=== PATIENT | female | born 1945 | race Caucasian/White ===

== ENCOUNTER 2021-03-02 21:34 | Inpatient (IN) | payer MEDICARE, OTHER ==
[~2021-03-02] VITALS: Ht 160 cm; Wt 98.4 kg
[2021-03-03] VITALS (7 sets, daily range): BP systolic 93–143; BP diastolic 55–76
[2021-03-03] MEDS ORDERED: ONDN4T PO (01:53)
[2021-03-03] MEDS ORDERED: ERGO1250 PO (02:08)
[2021-03-03] MEDS ORDERED: CETI10CA PO (02:08)
[2021-03-03] MEDS ORDERED: FLUT9.9S NS (02:08)
[2021-03-03] MEDS ORDERED: DICL20GE TP (02:08)
[2021-03-03] MEDS ORDERED: CNC1KV IM (02:08)
[2021-03-03] MEDS ORDERED: TROL85CR3 TP (02:09)
[2021-03-03] MEDS ORDERED: IBUP-2185 PO (02:09)
[2021-03-03] MEDS ORDERED: SIME125C78 PO (02:09)
[2021-03-03] MEDS ORDERED: MULT-985 PO (02:09)
[2021-03-03] MEDS ORDERED: METH114C4 TP (02:09)
[2021-03-03] MEDS ORDERED: MECL-149 PO (02:09)
[2021-03-03] MEDS ORDERED: LOPE2TAB34 PO (02:09)
[2021-03-03] MEDS ORDERED: DEXT1DRO7 OU (02:09)
[2021-03-03] MEDS ORDERED: HYDROmorphone 2 MG/ML VIAL (DILAUDID) IVP PRN (02:15)
[2021-03-03] MEDS: LACTATED RINGERS 1,000 ML IV SCH ×3 (02:44→17:20)
[2021-03-03 06:15] LABS: BASOPHILS % (AUTO) 0 % (0-10); EOSINOPHILS # (AUTO) 0.1 10^3/uL (0.0-0.3); EOSINOPHILS % (AUTO) 1 % (0-10); HEMATOCRIT 36 % (35-52); HEMOGLOBIN 11.4 g/dL (11.5-16.0); LYMPHOCYTES # (AUTO) 1.5 10^3/uL (1.0-4.0); LYMPHOCYTES % (AUTO) 21 % (12-44); MEAN CORPUSCULAR HEMOGLOBIN 30 pg (25-34); MEAN CORPUSCULAR HGB CONC 32 g/dL (32-36); MEAN CORPUSCULAR VOLUME 93 fL (80-99); MEAN PLATELET VOLUME 9.5 fL (9.0-12.2); MONOCYTES # (AUTO) 0.7 10^3/uL (0.0-1.0); MONOCYTES % (AUTO) 10 % (0-12); NEUTROPHILS # (AUTO) 4.8 10^3/uL (1.8-7.8); NEUTROPHILS % (AUTO) 67 % (42-75); PLATELET COUNT 335 10^3/uL (130-400); WHITE BLOOD COUNT 7.2 10^3/uL (4.3-11.0)
[2021-03-03 06:39] LABS: POTASSIUM 3.5 MMOL/L (3.6-5.0)
[2021-03-03 06:40] LABS: CALCIUM 8.8 MG/DL (8.5-10.1)
[2021-03-03 06:45] LABS: CREATININE SERUM 0.64 MG/DL (0.60-1.30)
--- NOTE | 2021-03-03 07:25 | Consultation - Surgery ---
MATT COREAS 03/03/21 0725: History of Present Illness History of Present Illness Patient Consulted On(roya/time) 03/03/21 07:18 Date Seen by Provider: Mar 03, 2021 Time Seen by Provider: 08:25 History of Present Illness PT is a 75 yo female here for small bowel obstruction. The patient reports symptoms belching, gas, bloating and diarrhea that started on evening. She denies seeing blood her in diarrhea, and reports it was a mix of watery substance and stool. She reports her abdominal pain is 1/10 currently, and was up to a 5.5/10. She describes her pain as "sore all over" and dull in character. She reports having 1/2 a cup of water, 1/2 a cup of apple juice, and some crackers Friday evening. She reports 1x episode of vomiting last night. Her last regular bowel movement was on morning. She mentions hearing some sloshing noises on the left side of the abdomen. She has been passing flatus regularly since these symptoms started. She came from the hospital in [place], and reports having a CT scan done there which showed a SBO she reports. The patient reports a history of 7 previous bowel obstructions. She reports they have been managed with NG tube placement and NPO. She has not had surgical therapy for the obstructions. Her last small bowel obstruction was in September, and was managed under the direction of Dr. Mccain in [facility]. She had a colonoscopy at that time, which she reports found polyps, and diverticulosis. Her next colonoscopy is scheduled in 5 years. The patient has a history of an appendectomy ( at 18 yo) , hysterectomy ( in 1971), and cholecystectomy ( 10 years ago) Allergies and Home Medications Allergies Coded Allergies: diazepam (Verified Allergy, Intermediate, 03/03/21) VIOLENT BEHAVIOR Penicillins (Verified Allergy, Mild, Hives, 03/03/21) codeine (Verified Allergy, Mild, Rash, 03/03/21) morphine (Verified Allergy, Mild, 03/03/21) BLURRED VISION promethazine (Verified Allergy, Mild, 03/03/21) ANXIETY temazepam (Verified Allergy, Mild, 03/03/21) MEMORY LOSS FOR TWO WEEKS tioconazole (Verified Allergy, Mild, Hives, 03/03/21) Patient Home Medication List Cetirizine HCl (Zyrtec) 10 Mg Capsule, 10 MG PO DAILY, (Reported) Entered as Reported by: ONELIA GONCALVES on 03/03/21207 Last Action: New Order Cyanocobalamin (Cyanocobalamin Injection) 1,000 Mcg/Ml Inj, 1,000 MCG IM Once a Month, (Reported) Entered as Reported by: ONELIA GONCALVES on 03/03/21207 Last Action: New Order Dextran 70/Hypromellose (Artificial Tears) 1 Each Droperette, 1 EACH OP DAILY PRN for DRY EYES, (Reported) Entered as Reported by: ONELIA GONCALVES on 03/03/21208 Last Action: New Order Diclofenac Sodium (Voltaren Arthritis Pain) 20 Gm Gel..gram., 20 GM TP QID, (Reported) Entered as Reported by: ONELIA GONCALVES on 03/03/21207 Last Action: New Order Ergocalciferol (Vitamin D2) (Vitamin D2) 1,250 Mcg Capsule, 1,250 MCG PO Once a week, (Reported) Entered as Reported by: ONELIA GONCALVES on 03/03/21207 Last Action: New Order Fluticasone Propionate (Flonase Allergy Relief) 9.9 Ml Clinton.susp, 1 SPRAY NS BID, (Reported) Entered as Reported by: ONELIA GONCALVES on 03/03/21207 Last Action: New Order Ibuprofen (Ibuprofen) 200 Mg Capsule, 200 MG PO Q4H PRN for PAIN-MILD (1-4), ( Reported) Entered as Reported by: ONELIA GONCALVES on 03/03/21208 Last Action: New Order Loperamide HCl (Loperamide) 2 Mg Tablet, 2 MG PO Q4H PRN for DIARRHEA, (Reported) Entered as Reported by: ONELIA GONCALVES on 03/03/21208 Last Action: New Order Meclizine HCl (Meclizine HCl) 25 Mg Tablet, 25 MG PO TID, (Reported) Entered as Reported by: ONELIA GONCALVES on 03/03/21208 Last Action: New Order Methyl Salicylate/Menth/Camph (Muscle Rub Ultra Str Cream) 114 Gm Cream..g., 114 GM TP PRN, (Reported) Entered as Reported by: ONELIA GONCALVES on 03/03/21208 Last Action: New Order Multivitamin with Minerals (Hair, Skin & Nails) 1 Each Tablet, 1 EACH PO DAILY, (Reported) Entered as Reported by: ONELIA GONCALVES on 03/03/21208 Last Action: New Order Ondansetron HCl (Zofran) 4 Mg Tab, 4 MG PO for NAUSEA-1ST LINE, (Reported) Entered as Reported by: ONELIA GONCALVES on 03/03/21 015 Last Action: New Order Simethicone (Simethicone) 125 Mg Capsule, 125 MG PO PCHS, (Reported) Entered as Reported by: ONELIA GONCALVES on 03/03/21208 Last Action: New Order Trolamine Salicylate (Arthricreme) 85 Gm Cream..g., 90 GM TP PRN, (Reported) Entered as Reported by: ONELIA GONCALVES on 03/03/21208 Last Action: New Order Past Zbpcktr-Jlcquu-Fuhxvu Hx Patient Social History Smoking Status: Never a Smoker Alcohol Use?: No Have you traveled recently?: No Immunizations Up To Date Date of Influenza Vaccine: Jan 25, 2021 Surgeries Surgeries: Appendectomy, Gallbladder, Hysterectomy Gastrointestinal Gastrointestinal Disorders: Obstructive Bowel, Diverticulosis, Polyps HEENT HEENT Disorders: Cataract, Macular Degeneration Cancer Cancer: Breast (5 years ago, 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 No chemo. No radiation ) Family Medical History Significant Family History: Cancer (Sister with pancreatic cancer. Father had Lung cancer. Mother had "female cancer"), Diabetes (Sister ( with Pancreatic cancer). ), Other Conditions/Hx (Heart attack in mother ) Review of Systems-General Constitutional: chills; No dizziness EENTM: No ear pain, No blurred vision Respiratory: No cough, No hemoptysis Cardiovascular: chest pain (better after belching ); No palpitations Gastrointestinal: abdominal pain (across upper abdomen ), nausea, vomiting (1x last night ) Genitourinary: No dysuria, No hematuria Musculoskeletal: back pain (R lower back ), joint pain (shoulders bilaterally ) Skin: No change in color, No change in hair/nails Psychiatric/Neurological: Denies Anxiety, Denies Depressed, Denies Emotional Problems Physical Exam-General Problems Physical Exam Vital Signs Vital Signs - First Documented 03/03/21 03/03/21 02:17 04:56 Temp 36.0 Pulse 83 Resp 20 B/P (MAP) 143/76 (98) Pulse Ox 98 O2 Delivery Nasal Cannula O2 Flow Rate 2.00 FiO2 98 Capillary Refill : General Appearance: no apparent distress, obese Eyes: Bilateral Eye PERRL, Bilateral Eye EOMI HEENT: PERRL/EOMI, pharynx normal; No scleral icterus (R), No scleral icterus (L) Neck: non-tender, full range of motion, supple Respiratory: chest non-tender, lungs clear, normal breath sounds, no respiratory distress, no accessory muscle use Cardiovascular: normal peripheral pulses, regular rate, rhythm, no edema, systolic murmur Peripheral Pulses: 2+ Radial Pulses (R), 2+ Radial Pulses (L) Gastrointestinal: non tender, no organomegaly, no pulsatile mass, distended (worse on left side) Rectal: deferred Extremities: normal range of motion, normal inspection, no pedal edema, no calf tenderness, calf tenderness (L side medially) Neurologic/Psychiatric: no motor/sensory deficits, alert, normal mood/affect, oriented x 3 Skin: normal color, warm/dry Lymphatic: no adenopathy (cervical) Data Review Labs Laboratory Tests 03/03/21 05:40: White Blood Count 7.2, Red Blood Count 3.87, Hemoglobin 11.4L, Hematocrit 36, Mean Corpuscular Volume 93, Mean Corpuscular Hemoglobin 30, Mean Corpuscular Hemoglobin Concent 32, Red Cell Distribution Width 13.2, Platelet Count 335, Mean Platelet Volume 9.5, Immature Granulocyte % (Auto) 0, Neutrophils (%) (Auto) 67, Lymphocytes (%) (Auto) 21, Monocytes (%) (Auto) 10, Eosinophils (%) (Auto) 1, Basophils (%) (Auto) 0, Neutrophils # (Auto) 4.8, Lymphocytes # (Auto) 1.5, Monocytes # (Auto) 0.7, Eosinophils # (Auto) 0.1, Basophils # (Auto) 0.0, Immature Granulocyte # (Auto) 0.0, Sodium Level 142, Potassium Level 3.5L, Chloride Level 106, Carbon Dioxide Level 25, Anion Gap 11, Blood Urea Nitrogen 11, Creatinine 0.64, Estimat Glomerular Filtration Rate 91, BUN/Creatinine Ratio 17, Glucose Level 104, Calcium Level 8.8 Assessment/Plan Assessment/Plan Assessment/Plan small bowel obstruction macular degeneration cataracts breast cancer Continue NPO and NGT. Obtain and review CT from [facility]. Monitor status for bowel movement. ELA ELLIS DO 03/03/21 1235: History of Present Illness History of Present Illness Time Seen by Provider: 10:30 History of Present Illness Surgery asked to consult regarding PSBO. HPI: Pt states she began feeling nauseous and had episode of emesis. She stated it was just like in the past when she had previous episodes of PSBO. Allergies and Home Medications Allergies Coded Allergies: diazepam (Verified Allergy, Intermediate, 03/03/21) VIOLENT BEHAVIOR Penicillins (Verified Allergy, Mild, Hives, 03/03/21) codeine (Verified Allergy, Mild, Rash, 03/03/21) morphine (Verified Allergy, Mild, 03/03/21) BLURRED VISION promethazine (Verified Allergy, Mild, 03/03/21) ANXIETY temazepam (Verified Allergy, Mild, 03/03/21) MEMORY LOSS FOR TWO WEEKS tioconazole (Verified Allergy, Mild, Hives, 03/03/21) Patient Home Medication List Home Medication List Reviewed: Yes Cetirizine HCl (Zyrtec) 10 Mg Capsule, 10 MG PO DAILY, (Reported) Entered as Reported by: ONELIA GONCALVES on 03/03/21207 Last Action: New Order Cyanocobalamin (Cyanocobalamin Injection) 1,000 Mcg/Ml Inj, 1,000 MCG IM Once a Month, (Reported) Entered as Reported by: ONELIA GONCALVES on 03/03/21207 Last Action: New Order Dextran 70/Hypromellose (Artificial Tears) 1 Each Droperette, 1 EACH OP DAILY PRN for DRY EYES, (Reported) Entered as Reported by: ONELIA GONCALVES on 03/03/21208 Last Action: New Order Diclofenac Sodium (Voltaren Arthritis Pain) 20 Gm Gel..gram., 20 GM TP QID, (Reported) Entered as Reported by: ONELIA GONCALVES on 03/03/21207 Last Action: New Order Ergocalciferol (Vitamin D2) (Vitamin D2) 1,250 Mcg Capsule, 1,250 MCG PO Once a week, (Reported) Entered as Reported by: ONELIA GONCALVES on 03/03/21207 Last Action: New Order Fluticasone Propionate (Flonase Allergy Relief) 9.9 Ml [place].susp, 1 SPRAY NS BID, (Reported) Entered as Reported by: ONELIA GONCALVES on 03/03/21207 Last Action: New Order Ibuprofen (Ibuprofen) 200 Mg Capsule, 200 MG PO Q4H PRN for PAIN-MILD (1-4), (Reported) Entered as Reported by: ONELIA GONCALVES on 03/03/21208 Last Action: New Order Loperamide HCl (Loperamide) 2 Mg Tablet, 2 MG PO Q4H PRN for DIARRHEA, (Reported) Entered as Reported by: ONELIA GONCALVES on 03/03/21208 Last Action: New Order Meclizine HCl (Meclizine HCl) 25 Mg Tablet, 25 MG PO TID, (Reported) Entered as Reported by: ONELIA GONCALVES on 03/03/21208 Last Action: New Order Methyl Salicylate/Menth/Camph (Muscle Rub Ultra Str Cream) 114 Gm Cream..g., 114 GM TP PRN, (Reported) Entered as Reported by: ONELIA GONCALVES on 03/03/21208 Last Action: New Order Multivitamin with Minerals (Hair, Skin & Nails) 1 Each Tablet, 1 EACH PO DAILY, (Reported) Entered as Reported by: ONELIA GONCALVES on 03/03/21208 Last Action: New Order Ondansetron HCl (Zofran) 4 Mg Tab, 4 MG PO for NAUSEA-1ST LINE, (Reported) Entered as Reported by: ONELIA GONCALVES on 03/03/21152 Last Action: New Order Simethicone (Simethicone) 125 Mg Capsule, 125 MG PO PCHS, (Reported) Entered as Reported by: ONELIA GONCALVES on 03/03/21208 Last Action: New Order Trolamine Salicylate (Arthricreme) 85 Gm Cream..g., 90 GM TP PRN, (Reported) Entered as Reported by: ONELIA GONCALVES on 03/03/21208 Last Action: New Order Past Sfupliz-Hplaij-Mbkovq Hx Patient Social History Smoking Status: Never a Smoker Alcohol Use?: No Surgeries History of Surgeries: Yes Surgeries: Appendectomy, Gallbladder, Hysterectomy Respiratory History of Respiratory Disorde: No Cardiovascular History of Cardiac Disorders: No Neurological History of Neurological Disord: No Genitourinary History of Genitourinary Disor: No Gastrointestinal History of Gastrointestinal Di: Yes Gastrointestinal Disorders: Obstructive Bowel, Diverticulosis, Polyps Musculoskeletal History of Musculoskeletal Dis: Yes Musculoskeletal Disorders: Arthritis Endocrine History of Endocrine Disorders: No HEENT History of HEENT Disorders: Yes HEENT Disorders: Cataract, Macular Degeneration Cancer History of Cancer: Yes Cancer: Breast (5 years ago, 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 No chemo. No radiation ) Psychosocial History of Psychiatric Problem: No Family Medical History Significant Family History: Cancer (Sister with pancreatic cancer. Father had Lung cancer. Mother had "female cancer"), Diabetes (Sister ( with Pancreatic cancer). ), Other Conditions/Hx (Heart attack in mother ) Review of Systems-General Constitutional: chills; No dizziness EENTM: No ear pain, No blurred vision Respiratory: No cough, No hemoptysis Cardiovascular: chest pain (better after belching ); No palpitations Gastrointestinal: abdominal pain (across upper abdomen ), nausea, vomiting (1x last night ) Genitourinary: No dysuria, No hematuria Musculoskeletal: back pain (R lower back ), joint pain (shoulders bilaterally ) Skin: No change in color, No change in hair/nails Psychiatric/Neurological: Denies Anxiety, Denies Depressed, Denies Emotional Problems Assessment/Plan Assessment/Plan Assessment/Plan Partial small bowel obstruction macular degeneration cataracts Hx of breast cancer Continue NPO and NGT. Obtain and review CT from [facility]. Monitor status for bowel movement. Supervisory-Addendum Brief Verification & Attestation Participated in pt care: history, MDM, physical Personally performed: exam, history, MDM, supervision of care Care discussed with: Medical Student Procedures: n/a Verification and Attestation of Medical Student E/M Service A medical student performed and documented this service. I then reviewed and verified all information documented by the medical student and made modifications to such information, when appropriate. I personally performed a physical exam, medical decision making and then discussed any differences between the notes and made revisions as necessary to create one note. Ela Ellis , 03/03/21 , 12:39 MATT COREAS Mar 03, 2021 07:25 ELA ELLIS DO Mar 03, 2021 12:35
[2021-03-03] MEDS: POTASSIUM CL 10MEQ/50ML IVPB 50 ML IV SCH ×4 (08:22→10:38)
[2021-03-03] MEDS: ENOXAPARIN 40 MG/0.4 ML (LOVENOX) SYR SC SCH (08:23)
--- NOTE | 2021-03-03 10:08 | Physical Therapy Evaluation ---
PT Evaluation-General Medical Diagnosis Admission Date Mar 03, 2021 at 01:45 Medical Diagnosis: SBO Onset Date: Mar 03, 2021 Therapy Diagnosis Therapy Diagnosis: debility/weakness Precautions Precautions/Isolations: Standard Precautions Referral Physician: Armando Reason for Referral: Evaluation/Treatment Medical History Additional Medical History morbid obesity Current History admit due to abdominal pain and N/V Reviewed History: Yes Social History Home: Single Level Current Living Status: Spouse Prior Prior Level of Function SCALE: Activities may be completed with or without assistive devices. 0-Yyerogwsko-jifycnu completes the activity by him/herself with no assistance from a helper. 5-Set-up or Clean-up Assistance-helper sets up or cleans up; patient completes activity. Paron assists only prior to or following the activity. 4-Supervision or Touching Assistance-helper provides verbal cues and/or touching/steadying and/or contact guard assistance as patient completes activity. Assistance may be provided throughout the activity or intermittently. 3-Partial/Moderate Assistance-helper does LESS THAN HALF the effort. Paron lifts, holds or supports trunk or limbs, but provides less than half the effort. 2-Substantial/Maximal Assistance-helper does MORE THAN HALF the effort. Paron lifts or holds trunk or limbs and provides more than half the effort. 1-Nhfzktncg-tfvncc does ALL the effort. Patient does none of the effort to complete the activity. Or, the assistance of 2 or more helpers is required for the patient to complete the activity. If activity was not attempted, code reason: 7-Patient Refused. 9-Not Applicable-not attempted and the patient did not perform the activity before the current illness, exacerbation or injury. 10-Not Attempted due to Environmental Limitations-(lack of equipment, weather restraints, etc.). 88-Not Attempted due to Medical Conditions or Safety Concerns. Bed Mobility: 6 Transfers (B,C,W/C): 6 Gait: 6 Indoor Mobility (Ambulation): Independent Prior Devices Use: Walker PT Evaluation-Current Subjective Patient agrees to PT. Pain Numeric Pain Scale: 7 Location: Medial, Upper Location Body Site: Abdomen Pain Description: Pressure Objective Patient Orientation: Normal For Age Attachments: NG Tube, Oxygen, IV ROM/Strength ROM Lower Extremities bilateral LE WFL Strength Lower Extremities 4-/5 grossly bilateral LE Integumentary/Posture Bowel Incontinence: No Bladder Incontinence: No Posture WFL Neuromuscular (Tone, Coordination, Reflexes) grossly intact Sensory Vision: Functional Hearing: Functional Transfers Roll Left to Right (QC): 4 Sit to Lying (QC): 4 Lying to Sitting/Side of Bed(Q: 4 Sit to Stand (QC): 4 Chair/Urd-ja-Wbcyq Xfer(QC): 4 Gait Does the Patient Walk?: Yes Mode of Locomotion: Walk Anticipated Mode of Locomotion: Walk Walk 10 feet (QC): 4 Walk 50 ft with 2 Turns(QC): 88 Walk 150 ft (QC): 88 Gait Assistive Device: FWW Balance Sitting Static: Normal Sitting Dynamic: Normal Standing Static: Normal Standing Dynamic: Normal Assessment/Needs 75 y.o. female, will be seen short term by skilled PT to address functional strength and mobility to improve current LOF to safely return to home with spouse at maximum LOF. Rehab Potential: Fair PT Tailer In Goals Tailer In Goals PT Snf Goals Time Frame: Mar 17, 2021 Roll Left & Right (QC): 6 Sit to Lying (QC): 6 Lying-Sitting on Side/Bed(QC): 6 Sit to Stand (QC): 6 Chair/Akt-wj-Zzgoh Xfer(QC): 6 Toilet Transfer (QC): 6 Walk 10 feet (QC): 6 Walk 50ft with 2 Turns (QC): 6 Walk 150 ft (QC): 6 PT Plan Problem List Problem List: Activity Tolerance, Bed Mobility Treatment/Plan Treatment Plan: Continue Plan of Care Treatment Plan: Bed Mobility, Education, Functional Activity Lizzie, Functional Strength, Gait, Safety, Therapeutic Exercise, Transfers Treatment Duration: Mar 17, 2021 Frequency: 6 times per week Estimated Hrs Per Day: .25 hour per day Patient and/or Family Agrees t: Yes Time/GCodes Time In: 848 Time Out: 900 Total Billed Treatment Time: 12 Total Billed Treatment 1 visit EVMod 12 min DELIA BRUMFIELD PT Mar 03, 2021 10:08
--- NOTE | 2021-03-03 11:13 | History & Physical-Hospitalist ---
History of Present Illness HPI/Chief Complaint Rhonda Moody is a 75-year-old female with past medical history of chronic back pain, chronic left shoulder pain, history of left humerus fracture, obesity, recurrent small bowel obstructions, who presented with nausea and vomiting. She had also been having abdominal pain. She said she was not able to hold anything down. She had also been having diarrhea. She says she has had 7 hospitalizations for small bowel obstruction in the past. She had 2 hospitalizations in September. She was told at that time that if she had another that she would require exploratory surgery. She had an NG tube placed in the ER. She has not had any further nausea or vomiting. She is not having any more abdominal pain or bloating. 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 Source: patient Exam Limitations: no limitations Date Seen 03/03/21 Time Seen by a Provider: 10:00 Attending Physician Anna Roberts MD PCP Referring Physician Date of Admission Mar 03, 2021 at 01:45 Home Medications & Allergies Home Medications Reviewed patient Home Medication Reconciliation performed by pharmacy medication reconciliations all terrain vehicle technician and/or nursing. Patients Allergies have been reviewed. Allergies Allergies Coded Allergies diazepam (Verified Allergy, Intermediate, 03/03/21) VIOLENT BEHAVIOR Penicillins (Verified Allergy, Mild, Hives, 03/03/21) codeine (Verified Allergy, Mild, Rash, 03/03/21) morphine (Verified Allergy, Mild, 03/03/21) BLURRED VISION promethazine (Verified Allergy, Mild, 03/03/21) ANXIETY temazepam (Verified Allergy, Mild, 03/03/21) MEMORY LOSS FOR TWO WEEKS tioconazole (Verified Allergy, Mild, Hives, 03/03/21) Past Ddcwqkr-Ncuudw-Cmiatj Hx Patient Social History Tobacco Use?: No Smoking Status: Never a Smoker Use of E-Cig and/or Vaping dev: No Substance use?: No Alcohol Use?: No Pt feels they are or have been: No Immunizations Up To Date Date of Influenza Vaccine: Jan 25, 2021 First/Initial COVID19 Vaccinat: -JUNE Second COVID19 Vaccination Viktor: Current Status status: No Advance Directives: No Communicates: Verbally Primary Language: Kiswahili Is interpretation needed?: No Past Medical History Surgeries: Appendectomy, Gallbladder, Hysterectomy Obstructive Bowel, Diverticulosis, Polyps Cataract, Macular Degeneration Breast (5 years ago, 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 No chemo. No radiation ) Family Medical History Cancer (Sister with pancreatic cancer. Father had Lung cancer. Mother had "female cancer"), Diabetes (Sister ( with Pancreatic cancer). ), Other Conditions/Hx (Heart attack in mother ) Review of Systems Constitutional: no symptoms reported EENTM: no symptoms reported Respiratory: no symptoms reported Cardiovascular: no symptoms reported Gastrointestinal: abdominal pain, diarrhea, nausea, vomiting Genitourinary: no symptoms reported Musculoskeletal: back pain, joint pain Skin: no symptoms reported Psychiatric/Neurological: No Symptoms Reported Physical Exam Physical Exam Vital Signs Vital Signs - First Documented 03/03/21 03/03/21 02:17 04:56 Temp 36.0 Pulse 83 Resp 20 B/P (MAP) 143/76 (98) Pulse Ox 98 O2 Delivery Nasal Cannula O2 Flow Rate 2.00 FiO2 98 Capillary Refill : Height, Weight, BMI Height: '" Weight: lbs. oz. kg; 38.43 BMI Method: General Appearance: No Apparent Distress, Obese HEENT: PERRL/EOMI, Pharynx Normal, Other (NG tube in place) Neck: Normal Inspection, Supple Respiratory: Lungs Clear, Normal Breath Sounds, No Respiratory Distress Cardiovascular: Regular Rate, Rhythm, No Edema, No Murmur Gastrointestinal: Normal Bowel Sounds; No No Organomegaly; Non Tender, Soft; No Distended, No Guarding Extremity: Normal Inspection, Non Tender, No Pedal Edema Neurologic/Psychiatric: Alert, Oriented x3, No Motor/Sensory Deficits, Normal Mood/Affect Skin: Normal Color, Warm/Dry Results Results/Procedures Labs Laboratory Tests 03/03/21 05:40 Patient resulted labs reviewed. Imaging: Reviewed Imaging Report Assessment/Plan Admission Diagnosis Small bowel obstruction Admission Status: Inpatient Order (span 2 midnights) Reason for Inpatient Admission: Small bowel obstruction requiring medical interventions and possible surgical intervention Assessment and Plan Small bowel obstruction History of small bowel obstruction Imaging consistent with partial small bowel obstruction NG tube in place to low intermittent suction IV fluids Pain regimen Surgery consulted Obesity Chronic low back pain Chronic left shoulder pain History of humerus fracture Macular degeneration Clinically significant, no acute management needs DVT prophylaxis: Lovenox Diagnosis/Problems Diagnosis/Problems (1) Small bowel obstruction Status: Acute (2) History of small bowel obstruction Status: Chronic (3) Obesity Status: Chronic (4) Chronic low back pain Status: Chronic (5) Chronic left shoulder pain Status: Chronic (6) History of humerus fracture Status: Chronic (7) Macular degeneration Status: Chronic ANNA ROBERTS MD Mar 03, 2021 11:13
--- NOTE | 2021-03-03 11:24 | Occupational Therapy Eval ---
OT Evaluation-General/PLF Medical Diagnosis Admission Date Mar 03, 2021 at 01:45 Medical Diagnosis: SBO Onset Date: Mar 03, 2021 Therapy Diagnosis Therapy Diagnosis: Weakness Precautions Precautions/Isolations: Standard Precautions Weight Bear Status Weight Bearing Restriction: Weight Bearing/Tolerated Referral Physician: Armando Duvall Reason: Activity Tolerance, Self Care, Evaluation/Treatment, Strengthening/ROM Medical History Additional Medical History Small bowel obstructions Current History Pt. began having gas, belching, bloating, and diarrhea. Came to ER. Pt. currently has NG tube placed. Reviewed History: Yes Social History Home: Single Level Current Living Status: Spouse Entry Into Home: Ramp ADL-Prior Level of Function SCALE: Activities may be completed with or without assistive devices. 8-Rngttdewel-tqfnywh completes the activity by him/herself with no assistance from a helper. 5-Set-up or Clean-up Assistance-helper sets up or cleans up; patient completes activity. [place] assists only prior to or following the activity. 4-Supervision or Touching Assistance-helper provides verbal cues and/or touching/steadying and/or contact guard assistance as patient completes activity. Assistance may be provided throughout the activity or intermittently. 3-Partial/Moderate Assistance-helper does LESS THAN HALF the effort. [place] lifts, holds or supports trunk or limbs, but provides less than half the effort. 2-Substantial/Maximal Assistance-helper does MORE THAN HALF the effort. [place] lifts or holds trunk or limbs and provides more than half the effort. 7-Ycfiblomx-kupxfo does ALL the effort. Patient does none of the effort to complete the activity. Or, the assistance of 2 or more helpers is required for the patient to complete the activity. If activity was not attempted, code reason: 7-Patient Refused. 9-Not Applicable-not attempted and the patient did not perform the activity before the current illness, exacerbation or injury. 10-Not Attempted due to Environmental Limitations-(lack of equipment, weather restraints, etc.). 88-Not Attempted due to Medical Conditions or Safety Concerns. ADL PLOF Comments Pt. independent with all tasks. Self Care: Independent Functional Cognition: Independent DME/Equipment Comments Pt. uses walker and has walk in bath tub. OT Current Status Subjective Pt. does not report pain level. Mental Status/Objective Patient Orientation: Person, Place, Time, Situation Attachments: IV, NG Tube, Oxygen Current Hand Dominance: Right Upper Extremity ROM Pt. demonstrates approximately 90 degrees bilateral UE. ADL-Treatment Eating (QC): 88 On/Off Footwear (QC): 2 Toileting Hygiene (QC): 4 (CGA to cleanse self after toileting.) Pt. able to stand with walker with CGA. Ambulated to BSC. Toileted with CGA and ambulated back to chair. All needs met. Education OT Patient Education: Correct positioning, Modified ADL techniques, Progress toward Goal/Update tx plan, Purpose of tx/functional activities, Reviewed precautions, Rehab process, Transfer techniques Teaching Recipient: Patient Teaching Methods: Demonstration, Discussion Response to Teaching: Verbalize Understanding, Return Demonstration OT Foundry Worker General Goals Foundry Worker General Goals Time Frame: Mar 10, 2021 Eating (QC): 6 Oral Hygiene (QC): 6 Toileting Hygiene (QC): 6 Shower/Bathe Self (QC): 4 Upper Body Dressing (QC): 6 Lower Body Dressing (QC): 6 On/Off Footwear (QC): 6 Additional Goals: 1-Demonstrate ADL Tasks, 2-Verbalize Understanding, 3- ImproveStrength/Lizzie 1=Demonstrate adherence to instructed precautions during ADL tasks. 2=Patient will verbalize/demonstrate understanding of assistive devices/modifications for ADL. 3=Patient will improve strength/tolerance for activity to enable patient to perform ADL's. OT Education/Plan Problem List/Assessment Assessment: Decreased Activ Tolerance, Impaired I ADL's, Impaired Self-Care Skills, Restricted Funct UE ROM Discharge Recommendations Plan/Recommendations: Continue POC Therapy Discharge Recommendati: Post Acute OT Treatment Plan/Plan of Care Treatment,Training & Education: Yes Patient would benefit from OT for education, treatment and training to promote independence in ADL's, mobility, safety and/or upper extremity function for ADL's. Plan of Care: ADL Retraining, Functional Mobility, UE Funct Exercise/Act Treatment Duration: Mar 10, 2021 Frequency: 5 times per week Estimated Hrs Per Day: .25 hour per day Agreement: Yes Rehab Potential: Good Time/GCodes Start Time: 10:40 Stop Time: 10:55 Total Time Billed (hr/min): 15 Billed Treatment Time 1, FELICIA AHMEED OT Mar 03, 2021 11:24
[2021-03-03] MEDS ORDERED: KETOROLAC 15 MG/ML VIAL IVP PRN (14:00)
[2021-03-03] MEDS: fentaNYL INJ 100 MCG/2 ML AMP IVP PRN (22:29)
[2021-03-04] MEDS: LACTATED RINGERS 1,000 ML IV SCH ×3 (01:27→17:46)
[2021-03-04] MEDS: fentaNYL INJ 100 MCG/2 ML AMP IVP PRN (01:28)
[2021-03-04 04:07] VITALS: BP 111/66
[2021-03-04 06:50] LABS: BASOPHILS % (AUTO) 0 % (0-10); EOSINOPHILS # (AUTO) 0.2 10^3/uL (0.0-0.3); EOSINOPHILS % (AUTO) 3 % (0-10); HEMATOCRIT 35 % (35-52); HEMOGLOBIN 10.9 g/dL (11.5-16.0); LYMPHOCYTES # (AUTO) 1.1 10^3/uL (1.0-4.0); LYMPHOCYTES % (AUTO) 20 % (12-44); MEAN CORPUSCULAR HEMOGLOBIN 30 pg (25-34); MEAN CORPUSCULAR HGB CONC 32 g/dL (32-36); MEAN CORPUSCULAR VOLUME 94 fL (80-99); MEAN PLATELET VOLUME 9.4 fL (9.0-12.2); MONOCYTES # (AUTO) 0.5 10^3/uL (0.0-1.0); MONOCYTES % (AUTO) 9 % (0-12); NEUTROPHILS # (AUTO) 3.5 10^3/uL (1.8-7.8); NEUTROPHILS % (AUTO) 67 % (42-75); PLATELET COUNT 279 10^3/uL (130-400); WHITE BLOOD COUNT 5.2 10^3/uL (4.3-11.0)
[2021-03-04 07:12] LABS: POTASSIUM 3.7 MMOL/L (3.6-5.0)
[2021-03-04 07:14] LABS: CALCIUM 8.7 MG/DL (8.5-10.1)
[2021-03-04 07:18] LABS: CREATININE SERUM 0.57 MG/DL (0.60-1.30)
[2021-03-04 08:00] VITALS: BP 117/70
[2021-03-04] MEDS: ENOXAPARIN 40 MG/0.4 ML (LOVENOX) SYR SC SCH (09:03)
--- NOTE | 2021-03-04 10:53 | Progress Note - Hospitalist ---
Subjective HPI/CC On Admission Date Seen by Provider: Mar 04, 2021 Time Seen by Provider: 10:15 Rhonda Moody is a 75-year-old female with past medical history of chronic back pain, chronic left shoulder pain, history of left humerus fracture, obesity, recurrent small bowel obstructions, who presented with nausea and vomiting. She had also been having abdominal pain. She said she was not able to hold anything down. She had also been having diarrhea. She says she has had 7 hospitalizations for small bowel obstruction in the past. She had 2 hospitalizations in September. She was told at that time that if she had another that she would require exploratory surgery. She had an NG tube placed in the ER. She has not had any further nausea or vomiting. She is not having any more abdominal pain or bloating. 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 Subjective/Events-last exam She is doing better. She is not having any abdominal pain. She is not having any nausea or vomiting. She has been tolerating ice chips. She has been passing gas. She has not yet had any bowel movements. Objective Exam Vital Signs Vital Signs Date Time Temp Pulse Resp B/P (MAP) Pulse Ox O2 Delivery O2 Flow Rate FiO2 03/04/21 08:00 36.4 71 18 117/70 (86) 96 Nasal Cannula 2.00 03/03/21 05:02 28 Capillary Refill : General Appearance: No Apparent Distress, Obese Respiratory: Lungs Clear, Normal Breath Sounds, No Respiratory Distress Cardiovascular: Regular Rate, Rhythm, No Edema, No Murmur Gastrointestinal: Normal Bowel Sounds, Non Tender, Soft; No Distended, No Guarding Extremity: Normal Inspection, Non Tender, No Pedal Edema Neurologic/Psychiatric: Alert, Oriented x3, No Motor/Sensory Deficits Skin: Normal Color, Warm/Dry Results/Procedures Lab Laboratory Tests 03/04/21 06:22 Patient resulted labs reviewed. Imaging: Reviewed Imaging Report Assessment/Plan Assessment and Plan Assess & Plan/Chief Complaint Small bowel obstruction History of small bowel obstruction Imaging consistent with partial small bowel obstruction NG tube in place, clamped IV fluids Pain regimen Surgery following Obesity Chronic low back pain Chronic left shoulder pain History of humerus fracture Macular degeneration Clinically significant, no acute management needs DVT prophylaxis: Lovenox Diagnosis/Problems Diagnosis/Problems (1) Small bowel obstruction Status: Acute (2) History of small bowel obstruction Status: Chronic (3) Obesity Status: Chronic (4) Chronic low back pain Status: Chronic (5) Chronic left shoulder pain Status: Chronic (6) History of humerus fracture Status: Chronic (7) Macular degeneration Status: Chronic LIANA CEJA MD Mar 04, 2021 10:53
[2021-03-04 12:00] VITALS: BP 136/76
--- NOTE | 2021-03-04 15:25 | Progress Note - Surgery ---
Subjective Time Seen by a Provider: 11:31 Subjective/Events-last exam Pt seen and examined, states she passed a very little gas but is also burping. Denies BMs, but states she had so many in the [place] ER. Nurse states NGT output is 800ml over 24 hrs; pt is taking some ice chips. Review of Systems General: No Fatigue, No Malaise Pulmonary: No Dyspnea, No Cough Cardiovascular: No: Chest Pain, Palpitations Gastrointestinal: Nausea, Abdominal Pain (minimal); No: Vomiting Objective Exam Vital Signs Date Time Temp Pulse Resp B/P (MAP) Pulse Ox O2 Delivery O2 Flow Rate FiO2 03/04/21 12:00 36.9 74 18 136/76 (96) 93 Room Air 03/04/21 08:00 36.4 71 18 117/70 (86) 96 Nasal Cannula 2.00 03/04/21 04:07 36.6 64 18 111/66 (81) 96 Nasal Cannula 2.00 03/03/21 23:48 36.4 79 18 107/64 (78) 94 Nasal Cannula 2.00 03/03/21 22:59 36.6 03/03/21 20:26 36.6 72 16 101/62 (75) 93 Room Air 03/03/21 20:00 98 Nasal Cannula 2.00 03/03/21 16:29 36.0 70 16 93/55 (68) 95 Nasal Cannula 2.00 I & O 03/04/21 07:00 Intake Total 200 ml Output Total 600 ml Balance -400 ml Capillary Refill : General Appearance: No Apparent Distress, Obese HEENT: PERRL/EOMI, Other (NG tube in place) Respiratory: Lungs Clear, Normal Breath Sounds, No Respiratory Distress Cardiovascular: Regular Rate, Rhythm, No Edema, No Murmur Peripheral Pulses: 2+ Radial Pulses (R), 2+ Radial Pulses (L) Gastrointestinal: non tender, no organomegaly, no pulsatile mass Neurologic/Psychiatric: Alert, Oriented x3 Results Lab Laboratory Tests 03/03/21 17:14: Glucometer 85 03/04/21 06:22: White Blood Count 5.2, Red Blood Count 3.68L, Hemoglobin 10.9L, Hematocrit 35, Mean Corpuscular Volume 94, Mean Corpuscular Hemoglobin 30, Mean Corpuscular Hemoglobin Concent 32, Red Cell Distribution Width 13.0, Platelet Count 279, Mean Platelet Volume 9.4, Immature Granulocyte % (Auto) 0, Neutrophils (%) (Auto) 67, Lymphocytes (%) (Auto) 20, Monocytes (%) (Auto) 9, Eosinophils (%) (Auto) 3, Basophils (%) (Auto) 0, Neutrophils # (Auto) 3.5, Lymphocytes # (Auto) 1.1, Monocytes # (Auto) 0.5, Eosinophils # (Auto) 0.2, Basophils # (Auto) 0.0, Immature Granulocyte # (Auto) 0.0, Sodium Level 141, Potassium Level 3.7, Chloride Level 105, Carbon Dioxide Level 26, Anion Gap 10, Blood Urea Nitrogen 10, Creatinine 0.57L, Estimat Glomerular Filtration Rate 104, BUN/Creatinine Ratio 18, Glucose Level 90, Calcium Level 8.7 Assessment/Plan Assessment/Plan Assessment/Plan Partial small bowel obstruction macular degeneration cataracts Hx of breast cancer Continue NPO and NGT. I was able to review [facility] from [facility]; I saw the area of decompressed (??stricture) of small bowel. She also has very weak abdominal wall almost like hernia or just diastasis. Still no bowel movement, will order a SBFT for the morning. ELA ELLIS DO Mar 04, 2021 15:25
[2021-03-04 15:53] VITALS: BP 150/66
[2021-03-04 19:44] VITALS: BP 150/69
[2021-03-05 00:04] VITALS: BP 151/78
[2021-03-05] MEDS: LACTATED RINGERS 1,000 ML IV SCH ×3 (01:49→14:35)
[2021-03-05] MEDS: ONDANSETRON 4 MG/2 ML (SDV) Z0FRAN IV PRN ×2 (05:05→19:54)
[2021-03-05] MEDS: fentaNYL INJ 100 MCG/2 ML AMP IVP PRN ×2 (05:06→23:27)
[2021-03-05 05:24] LABS: BASOPHILS # (AUTO) 0.1 10^3/uL (0.0-0.1); BASOPHILS % (AUTO) 1 % (0-10); EOSINOPHILS # (AUTO) 0.1 10^3/uL (0.0-0.3); EOSINOPHILS % (AUTO) 2 % (0-10); HEMATOCRIT 36 % (35-52); HEMOGLOBIN 11.6 g/dL (11.5-16.0); LYMPHOCYTES # (AUTO) 1.5 10^3/uL (1.0-4.0); LYMPHOCYTES % (AUTO) 23 % (12-44); MEAN CORPUSCULAR HEMOGLOBIN 30 pg (25-34); MEAN CORPUSCULAR HGB CONC 33 g/dL (32-36); MEAN CORPUSCULAR VOLUME 92 fL (80-99); MEAN PLATELET VOLUME 9.4 fL (9.0-12.2); MONOCYTES # (AUTO) 0.6 10^3/uL (0.0-1.0); MONOCYTES % (AUTO) 9 % (0-12); NEUTROPHILS # (AUTO) 4.2 10^3/uL (1.8-7.8); NEUTROPHILS % (AUTO) 65 % (42-75); PLATELET COUNT 276 10^3/uL (130-400); WHITE BLOOD COUNT 6.4 10^3/uL (4.3-11.0)
[2021-03-05 05:38] LABS: POTASSIUM 3.2 MMOL/L (3.6-5.0)
[2021-03-05 05:44] LABS: CREATININE SERUM 0.57 MG/DL (0.60-1.30)
--- NOTE | 2021-03-05 07:23 | Progress Note - Surgery ---
CHANDANA SMITH MED STUDENT 03/05/21 0723: Subjective Date Seen by a Provider: Mar 05, 2021 Time Seen by a Provider: 06:30 Subjective/Events-last exam Patient is seen at bedside. She is sitting comfortable, is on 2L o2 by GA, she does not wear oxygen at home. She reports she did have some pain in the back of her throat, which made it difficult to breath around 5am this morning. This has improved after receiving a dose of fentynyl. She also reports change in the ngt contents she states it went from a bilious color and is no very dark. She denies abdominal pain, nausea, and vomiting. She does report some bloating, but it has been worse in the past with previous SBOs. She is passing small amounts of gas, and denies any bowel movements since the diarrhea stopped. She states she has had decreased urine production, but denies dysuria or hematuria, or any color changes. She has been able to ambulate out of bed. Review of Systems General: Night Sweats HEENT: Sinus Congestion, Sore Throat Pulmonary: No Cough Cardiovascular: No: Chest Pain, Palpitations Gastrointestinal: No: Nausea, Vomiting, Abdominal Pain Genitourinary: No Dysuria, No Hematuria Musculoskeletal: shoulder pain Neurological: Weakness Objective Exam Vital Signs Date Time Temp Pulse Resp B/P (MAP) Pulse Ox O2 Delivery O2 Flow Rate FiO2 03/05/21 00:04 36.4 77 18 151/78 (102) 93 Room Air 03/04/21 20:00 Room Air 03/04/21 19:44 36.3 81 18 150/69 (96) 92 Room Air 03/04/21 15:53 36.5 78 18 150/66 (94) 93 Room Air 03/04/21 12:00 36.9 74 18 136/76 (96) 93 Room Air 03/04/21 08:00 Nasal Cannula 2.00 03/04/21 08:00 36.4 71 18 117/70 (86) 96 Nasal Cannula 2.00 I & O 03/05/21 07:00 Intake Total 4000 ml Output Total 900 ml Balance 3100 ml Capillary Refill : General Appearance: No Apparent Distress, Obese HEENT: PERRL/EOMI, Other (NG tube in place) Respiratory: No Respiratory Distress Cardiovascular: Regular Rate, Rhythm, No Edema, Normal Peripheral Pulses Peripheral Pulses: 2+ Radial Pulses (R), 2+ Radial Pulses (L) Gastrointestinal: non tender, no organomegaly, no pulsatile mass, distended (mild), other (tympanic on percussion, significant output (approx 700ml of gastric contents from NGT, it has a dark succus appearance)) Neurologic/Psychiatric: Alert, Oriented x3 Skin: Normal Color, Warm/Dry Results Lab Laboratory Tests 03/05/21 05:16: White Blood Count 6.4, Red Blood Count 3.87, Hemoglobin 11.6, Hematocrit 36, Mean Corpuscular Volume 92, Mean Corpuscular Hemoglobin 30, Mean Corpuscular Hemoglobin Concent 33, Red Cell Distribution Width 12.6, Platelet Count 276, Mean Platelet Volume 9.4, Immature Granulocyte % (Auto) 0, Neutrophils (%) (Auto) 65, Lymphocytes (%) (Auto) 23, Monocytes (%) (Auto) 9, Eosinophils (%) (Auto) 2, Basophils (%) (Auto) 1, Neutrophils # (Auto) 4.2, Lymphocytes # (Auto) 1.5, Monocytes # (Auto) 0.6, Eosinophils # (Auto) 0.1, Basophils # (Auto) 0.1, Immature Granulocyte # (Auto) 0.0, Sodium Level 140, Potassium Level 3.2L, Chloride Level 100, Carbon Dioxide Level 26, Anion Gap 14, Blood Urea Nitrogen 7, Creatinine 0.57L, Estimat Glomerular Filtration Rate 104, BUN/Creatinine Ratio 12, Glucose Level 83, Calcium Level 9.0 Assessment/Plan Assessment/Plan Assessment/Plan Partial small bowel obstruction possible stricture macular degeneration cataracts Hx of breast cancer Osteoarthiritis Continue NPO and NGT. Continue fluids, continue pain control. Plan on SBFT this morning, will follow for results to make appropriate plan JASBIR FULLER DO 03/05/21 1342: Subjective Time Seen by a Provider: 12:42 Subjective/Events-last exam Pt seen and examined, states she just had a bloody nose. She also had a large BM and is passing gas. She would like to try eating "something". Review of Systems General: Night Sweats, Fatigue HEENT: Sinus Congestion, Sore Throat Pulmonary: No Cough Cardiovascular: No: Chest Pain, Palpitations Gastrointestinal: No: Nausea, Vomiting, Abdominal Pain Objective Exam General Appearance: No Apparent Distress, Obese HEENT: Other (NG tube in place) Respiratory: Lungs Clear, Normal Breath Sounds, No Accessory Muscle Use, No Respiratory Distress Cardiovascular: Regular Rate, Rhythm, No Murmur Gastrointestinal: non tender, no organomegaly, no pulsatile mass, other (tympanic on percussion, significant output (approx 700ml of gastric contents from NGT, it has a dark succus appearance)) Neurologic/Psychiatric: Alert, Oriented x3 Assessment/Plan Assessment/Plan Assessment/Plan Partial small bowel obstruction - resolved macular degeneration/cataracts Osteoarthiritis Plan to clamp NGT and start clears; will hook back up to suction tomorrow am and record output. If less than 300ml will d/c ngt start soft diet and then maybe send home. I went over the SBFT with the radiologist, going over the images and her small bowel appears to be back to normal with no dilation. No signs of stricture and contrast made it into the colon within 45 minutes to an hour. Supervisory-Addendum Brief Verification & Attestation Participated in pt care: history, MDM, physical Personally performed: exam, history, MDM, supervision of care Care discussed with: Medical Student Procedures: n/a Verification and Attestation of Medical Student E/M Service A medical student performed and documented this service. I then reviewed and verified all information documented by the medical student and made modifications to such information, when appropriate. I personally performed a physical exam, medical decision making and then discussed any differences between the notes and made revisions as necessary to create one note. Jasbir Fuller , 03/05/21 , 13:42 CHANDANA SMITH MED STUDENT Mar 05, 2021 07:23 JASBIR FULLER DO Mar 05, 2021 13:42
[2021-03-05 08:00] VITALS: BP 127/57
[2021-03-05] MEDS ORDERED: THERAWORX TP (09:09)
[2021-03-05] MEDS ORDERED: MV-M1TAB38 PO (09:09)
[2021-03-05] MEDS ORDERED: DOCU-143 PO (09:09)
[2021-03-05] MEDS ORDERED: CHOL10007 PO (09:09)
[2021-03-05] MEDS: ENOXAPARIN 40 MG/0.4 ML (LOVENOX) SYR SC SCH (09:13)
--- NOTE | 2021-03-05 09:50 | Physical Therapy Daily Note ---
PT Daily Note-Current Subjective Patient agrees to PT. Mental Status Patient Orientation: Normal For Age Attachments: NG Tube, Oxygen, IV Transfers SCALE: Activities may be completed with or without assistive devices. 8-Xhefdltrxo-taqjagi completes the activity by him/herself with no assistance from a helper. 5-Set-up or Clean-up Assistance-helper sets up or cleans up; patient completes activity. [place] assists only prior to or following the activity. 4-Supervision or Touching Assistance-helper provides verbal cues and/or touching/steadying and/or contact guard assistance as patient completes activity. Assistance may be provided throughout the activity or intermittently. 3-Partial/Moderate Assistance-helper does LESS THAN HALF the effort. [place] lift s, holds or supports trunk or limbs, but provides less than half the effort. 2-Substantial/Maximal Assistance-helper does MORE THAN HALF the effort. [place] lifts or holds trunk or limbs and provides more than half the effort. 5-Lgpjxojez-wddgns does ALL the effort. Patient does none of the effort to complete the activity. Or, the assistance of 2 or more helpers is required for the patient to complete the activity. If activity was not attempted, code reason: 7-Patient Refused. 9-Not Applicable-not attempted and the patient did not perform the activity before the current illness, exacerbation or injury. 10-Not Attempted due to Environmental Limitations-(lack of equipment, weather restraints, etc.). 88-Not Attempted due to Medical Conditions or Safety Concerns. Sit to Stand (QC): 4 (SBA) Gait Training Does the Patient Walk?: Yes Distance: 20' x 4 Walk 10 feet (QC): 4 Gait Assistive Device: FWW slow, functional gait sequence/SBA Assessment Patient remains up in recliner with needs met. Continue to increase activity as tolerated by patient. PT Supervisory Training Specialist Goals Alf Goals PT Supervisory Training Specialist Goals Time Frame: Mar 17, 2021 Roll Left & Right (QC): 6 Sit to Lying (QC): 6 Lying-Sitting on Side/Bed(QC): 6 Sit to Stand (QC): 6 Chair/[place]-dx-Bnwvq Xfer(QC): 6 Toilet Transfer (QC): 6 Walk 10 feet (QC): 6 Walk 50ft with 2 Turns (QC): 6 Walk 150 ft (QC): 6 PT Plan Treatment/Plan Treatment Plan: Continue Plan of Care Treatment Plan: Bed Mobility, Education, Functional Activity Lizzie, Functional Strength, Gait, Safety, Therapeutic Exercise, Transfers Treatment Duration: Mar 17, 2021 Frequency: 6 times per week Estimated Hrs Per Day: .25 hour per day Patient and/or Family Agrees t: Yes Time/GCodes Time In: 857 Time Out: 910 Total Billed Treatment Time: 13 Total Billed Treatment 1 visit FA 13 min DELIA BRUMFIELD PT Mar 05, 2021 09:50
[2021-03-05] MEDS ORDERED: DIATRIZOATE MEGLUM/SODIUM 37% 120 ML (GASTROGRAFIN) NG ONE (10:15)
--- NOTE | 2021-03-05 11:04 | Progress Note - Hospitalist ---
Subjective HPI/CC On Admission Date Seen by Provider: Mar 05, 2021 Time Seen by Provider: 11:03 Rhonda Moody is a 75-year-old female with past medical history of chronic back pain, chronic left shoulder pain, history of left humerus fracture, obesity, recurrent small bowel obstructions, who presented with nausea and vomiting. She had also been having abdominal pain. She said she was not able to hold anything down. She had also been having diarrhea. She says she has had 7 hospitalizations for small bowel obstruction in the past. She had 2 hospitalizations in September. She was told at that time that if she had another that she would require exploratory surgery. She had an NG tube placed in the ER. She has not had any further nausea or vomiting. She is not having any more abdominal pain or bloating. 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 Subjective/Events-last exam Pt reports feeling better today. Still no BM but is passing some minimal flatus. About to go down for SBFT. Objective Exam Vital Signs Vital Signs Date Time Temp Pulse Resp B/P (MAP) Pulse Ox O2 Delivery O2 Flow Rate FiO2 03/05/21 10:24 Nasal Cannula 2.00 03/05/21 08:00 36.0 74 18 127/57 (80) 99 03/03/21 05:02 28 Capillary Refill : General Appearance: No Apparent Distress, Obese Respiratory: Lungs Clear, No Respiratory Distress Cardiovascular: Regular Rate, Rhythm, No Murmur Gastrointestinal: Non Tender, Soft, Abnormal Bowel Sounds (quiet though present) Neurologic/Psychiatric: Alert, Oriented x3, Normal Mood/Affect Results/Procedures Lab Laboratory Tests 03/05/21 05:16 Patient resulted labs reviewed. Imaging: Reviewed Imaging Report Assessment/Plan Assessment and Plan Assess & Plan/Chief Complaint Small bowel obstruction History of small bowel obstruction Imaging consistent with partial small bowel obstruction NG tube in place IV fluids Pain regimen Surgery following SBFT today, await results Obesity Chronic low back pain Chronic left shoulder pain History of humerus fracture Macular degeneration Clinically significant, no acute management needs DVT prophylaxis: TEMO Huizar MD Mar 05, 2021 11:04
--- NOTE | 2021-03-05 12:35 | Diagnostic Imaging Report ---
INDICATION: Small bowel obstruction. Comparison is made with an outside CT scan performed 03/02/2021. TECHNIQUE: Gastrografin contrast was infused through the patient's nasogastric tube, and serial radiographs of the abdomen were obtained. FINDINGS: Stomach is unremarkable. There is prompt emptying of contrast into the small bowel. There appears to be normal progression of contrast through the small bowel. Small bowel does not appear to be dilated. The mucosal fold pattern is unremarkable. Contrast does reach the right colon at approximately 45 minutes. IMPRESSION: Normal small bowel study. Dictated by: Dictated on workstation # [id number]
--- NOTE | 2021-03-05 14:01 | Occupational Ther Daily Note ---
OT Current Status-Daily Note Subjective Pt reports being switched to liquid diet, no longer NPO. Appearance Sitting in chair, all needs within reach at end of treatment. ADL-Treatment Therapy Code Descriptions/Definitions Functional [place] Measure: 0=Not Assessed/NA 4=Minimal Assistance 1=Total Assistance 5=Supervision or Setup 2=Maximal Assistance 6=Modified [place] 3=Moderate Assistance 7=Complete IndependenceSCALE: Activities may be completed with or without assistive devices. 4-Oeakdjbexq-fpydskh completes the activity by him/herself with no assistance from a helper. 5-Set-up or Clean-up Assistance-helper sets up or cleans up; patient completes activity. [place] assists only prior to or following the activity. 4-Supervision or Touching Assistance-helper provides verbal cues and/or touching/steadying and/or contact guard assistance as patient completes activity. Assistance may be provided throughout the activity or intermittently. 3-Partial/Moderate Assistance-helper does LESS THAN HALF the effort. [place] lifts, holds or supports trunk or limbs, but provides less than half the effort. 2-Substantial/Maximal Assistance-helper does MORE THAN HALF the effort. [place] lifts or holds trunk or limbs and provides more than half the effort. 4-Osedintsk-hezzkl does ALL the effort. Patient does none of the effort to complete the activity. Or, the assistance of 2 or more helpers is required for the patient to complete the activity. If activity was not attempted, code reason: 7-Patient Refused. 9-Not Applicable-not attempted and the patient did not perform the activity before the current illness, exacerbation or injury. 10-Not Attempted due to Environmental Limitations-(lack of equipment, weather restraints, etc.). 88-Not Attempted due to Medical Conditions or Safety Concerns. Pt with NG tube. Now on liquid diet. Able to bring cup/silverware to mouth without difficulty. Reports burning sensation when swallowing, especially with grape juice. Pt currently on 2L O2 NC, does not wear oxygen at baseline. She reports challenges at home due to impaired shoulder ROM and reduced activity tolerance. OT discussed compensatory techniques and adaptive tools. One challenge pt discussed was bathing and inability to reach opposite axilla to wash/shave. Education provided; OT will instruct on LHS use during next session. She demonstrated ability to reach feet by bringing foot up to side of chair. She was able to demonstrate sit<>stand with CGA, no unsteadiness. Multiple energy conservation strategies discussed during ADLs and simple IADLs. Education OT Patient Education: Energy conservation, Modified ADL techniques, Progress toward Goal/Update tx plan, Purpose of tx/functional activities, Reviewed precautions, Rehab process, Safety issues, Use of adapted equipment Teaching Recipient: Patient Teaching Methods: Demonstration, Discussion Response to Teaching: Verbalize Understanding, Return Demonstration, Reinforcement Needed OT Assisted Goals Assisted Goals Time Frame: Mar 10, 2021 Eating (QC): 6 Oral Hygiene (QC): 6 Toileting Hygiene (QC): 6 Shower/Bathe Self (QC): 4 Upper Body Dressing (QC): 6 Lower Body Dressing (QC): 6 On/Off Footwear (QC): 6 Additional Goals: 1-Demonstrate ADL Tasks, 2-Verbalize Understanding, 3- ImproveStrength/Lizzie 1=Demonstrate adherence to instructed precautions during ADL tasks. 2=Patient will verbalize/demonstrate understanding of assistive devices/modifications for ADL. 3=Patient will improve strength/tolerance for activity to enable patient to perform ADL's. OT Education/Plan Problem List/Assessment Assessment: Decreased Activ Tolerance, Decreased UE Strength, Impaired Funct Balance, Impaired I ADL's, Impaired Self-Care Skills, Restricted Funct UE ROM Discharge Recommendations Plan/Recommendations: Continue POC Treatment Plan/Plan of Care Treatment,Training & Education: Yes Patient would benefit from OT for education, treatment and training to promote independence in ADL's, mobility, safety and/or upper extremity function for ADL's. Plan of Care: ADL Retraining, Functional Mobility, UE Funct Exercise/Act Treatment Duration: Mar 10, 2021 Frequency: 5 times per week Estimated Hrs Per Day: .25 hour per day Agreement: Yes Rehab Potential: Good Time/GCodes Start Time: 13:26 Stop Time: 13:46 Total Time Billed (hr/min): 20 Billed Treatment Time 1 visit, Leona Bautista OT Mar 05, 2021 14:01
[2021-03-05 16:00] VITALS: BP 152/65
[2021-03-05 23:33] VITALS: BP 122/63
[2021-03-06] MEDS: LACTATED RINGERS 1,000 ML IV SCH ×2 (03:43→10:15)
[2021-03-06 06:00] LABS: BASOPHILS % (AUTO) 1 % (0-10); EOSINOPHILS # (AUTO) 0.2 10^3/uL (0.0-0.3); EOSINOPHILS % (AUTO) 3 % (0-10); HEMATOCRIT 36 % (35-52); HEMOGLOBIN 11.6 g/dL (11.5-16.0); LYMPHOCYTES # (AUTO) 1.3 10^3/uL (1.0-4.0); LYMPHOCYTES % (AUTO) 24 % (12-44); MEAN CORPUSCULAR HEMOGLOBIN 30 pg (25-34); MEAN CORPUSCULAR HGB CONC 33 g/dL (32-36); MEAN CORPUSCULAR VOLUME 92 fL (80-99); MEAN PLATELET VOLUME 9.4 fL (9.0-12.2); MONOCYTES # (AUTO) 0.6 10^3/uL (0.0-1.0); MONOCYTES % (AUTO) 12 % (0-12); NEUTROPHILS # (AUTO) 3.2 10^3/uL (1.8-7.8); NEUTROPHILS % (AUTO) 60 % (42-75); PLATELET COUNT 301 10^3/uL (130-400); WHITE BLOOD COUNT 5.4 10^3/uL (4.3-11.0)
[2021-03-06 06:20] LABS: CALCIUM 9.1 MG/DL (8.5-10.1); CREATININE SERUM 0.6 MG/DL (0.60-1.30); POTASSIUM 3.3 MMOL/L (3.6-5.0)
--- NOTE | 2021-03-06 06:56 | Progress Note - Surgery ---
EDGARDO WALDRON 03/06/21 0656: Subjective Date Seen by a Provider: Mar 06, 2021 Time Seen by a Provider: 06:40 Subjective/Events-last exam Patient was laying in bed, in minimal discomfort. Patient complained of sore throat and submandibular jaw pain, radiating to ears and some trouble breathing o/n. Patient reports mild fever. Patient feels like there is stuff in her throat that is stuck and making it difficult to swallow and breath. Patient was given fentynyl and zofran to help her sleep but symptoms with throat/submandibular pain still present. While standing and moving around, patient oxygen saturation decreased to 60's per nurse. Patient was placed on 3L nasal canula and saturation returned to normal. Patient was previously on 2L nasal canula. Patient is not on oxygen at home. Patient states her belly is feeling better. Does not have pain in her abdomen. Patient reports mild bloating. Patient reported passing flatus and having loose bowel movement. NG tube was clamped yesterday. Patient handling clear liquids well. Patient denies any issues with urination, no dysuria or hematuria. Patient denies fever, chills, sweats, lightheadedness, cough, dizziness and vomiting. Review of Systems General: No Chills, No Night Sweats, No Fatigue, No Malaise, No Appetite, No Other HEENT: Head Aches; No Visual Changes, No Eye Pain; Ear Pain, Sore Throat, Other (Congestion in throat) Pulmonary: Dyspnea; No Cough Cardiovascular: Edema (mild edema in lower extremities); No: Chest Pain, Palpitations, Paroxysmal Noc. Dyspnea, Lt Headedness Gastrointestinal: Nausea, Diarrhea; No: Vomiting, Abdominal Pain, Constipation, Melena, Hematochezia Genitourinary: No Dysuria, No Frequency, No Incontinence, No Hematuria Musculoskeletal: other (submandibular jaw pain) Neurological: No: Weakness, Numbness, Confusion Objective Exam Vital Signs Date Time Temp Pulse Resp B/P (MAP) Pulse Ox O2 Delivery O2 Flow Rate FiO2 03/05/21 23:33 36.9 69 20 122/63 (82) 93 Room Air 03/05/21 22:35 Nasal Cannula 2.00 03/05/21 19:54 Room Air 03/05/21 16:00 36.7 81 18 152/65 (94) 92 Room Air 03/05/21 10:24 Nasal Cannula 2.00 03/05/21 08:00 Room Air 03/05/21 08:00 36.0 74 18 127/57 (80) 99 Nasal Cannula 2.00 I & O 03/06/21 06:59 Intake Total 1770 ml Balance 1770 ml Capillary Refill : General Appearance: No Apparent Distress (Patient complaining of sore throat, some trouble breathing due to congestion in throat.), Obese HEENT: Moist Mucous Membranes, Other (NG tube in place. No pain on palpation of maxillary and frontal sinuses. ) Neck: Other (Tender submandubular area and neck. ) Respiratory: Lungs Clear, Normal Breath Sounds, No Accessory Muscle Use, No Respiratory Distress Cardiovascular: Regular Rate, Rhythm, No Gallop, Normal Peripheral Pulses, Systolic Murmur (Possible systolic murmer heard on auscultation.) Peripheral Pulses: 2+ Dorsalis Pedis (R), 2+ Radial Pulses (R), 2+ Radial Pulses (L) Gastrointestinal: normal bowel sounds, non tender, soft, no organomegaly, no pulsatile mass, other (tympanic on percussion, significant output (approx 700ml of gastric contents from NGT, it has a dark succus appearance)) Neurologic/Psychiatric: Alert, Oriented x3 Skin: Normal Color, Warm/Dry Results Lab Laboratory Tests 03/06/21 05:50: White Blood Count 5.4, Red Blood Count 3.85, Hemoglobin 11.6, Hematocrit 36, Me an Corpuscular Volume 92, Mean Corpuscular Hemoglobin 30, Mean Corpuscular Hemoglobin Concent 33, Red Cell Distribution Width 12.9, Platelet Count 301, Mean Platelet Volume 9.4, Immature Granulocyte % (Auto) 0, Neutrophils (%) (Auto) 60, Lymphocytes (%) (Auto) 24, Monocytes (%) (Auto) 12, Eosinophils (%) (Auto) 3, Basophils (%) (Auto) 1, Neutrophils # (Auto) 3.2, Lymphocytes # (Auto) 1.3, Monocytes # (Auto) 0.6, Eosinophils # (Auto) 0.2, Basophils # (Auto) 0.0, Immature Granulocyte # (Auto) 0.0, Sodium Level 142, Potassium Level 3.3L, Chloride Level 102, Carbon Dioxide Level 28, Anion Gap 12, Blood Urea Nitrogen 4L, Creatinine 0.60, Estimat Glomerular Filtration Rate 98, BUN/Creatinine Ratio 7, Glucose Level 108H, Calcium Level 9.1 Meds Item Value Date Time Fentanyl Citrate 25 mcg 03/03/215 (Sublimaze Q1H PRN/IVP 03/05/21 2327 Injection) Ketorolac 15 mg 03/03/21 1400 Tromethamine Q6H PRN/IVP 03/03/21 1437 (Toradol Injection) Enoxaparin Sodium 40 mg 03/03/21 0900 (Lovenox DAILY/SC 03/05/21 0913 Injection) Lactated Ringer's 1,000 ml @ 125 mls/hr 03/03/21 0215 Ondansetron HCl 4 mg 03/03/21 0215 (Zofran Q6H PRN/IV 03/05/211953 Injection (Sdv)) Diatrizoate 120 ml 03/05/21 1015 Meglum/ ONCE ONCE/NG 03/05/21 1015 Diatrizoate Sod (Gastrografin 37% 120 ml) Radiology Last Patient Imaging was XR on 03/05/2021. FINDINGS: Stomach is unremarkable. There is prompt emptying of contrast into the small bowel. There appears to be normal progression of contrast through the small bowel. Small bowel does not appear to be dilated. The mucosal fold pattern is unremarkable. Contrast does reach the right colon at approximately 45 minutes. IMPRESSION: Normal small bowel study. Procedures NG tube clamped yesterday. Patient tolerating well o/n. Assessment/Plan Assessment/Plan Admission Diagonsis *SEE PROBLEM LIST Assessment/Plan Assessment: Partial small bowel obstruction - resolved macular degeneration/cataracts Osteoarthritis Impression: Overall, patient doing better. No abdominal pain, abd is soft, not distended, normal bowel sounds. Patient is afebrile, not tachycardic, not hypertensive. Patient handling clear liquids. XR results noted NL bowel, obstruction resolved as it took 45 min for contrast to get to large bowel. Patient had some issues with oxygen saturation while standing, placed on 3L nasal canula. Was on 2L previously. No oxygen at home. Patient experienced some throat pain and submandibular tenderness which may be from NG tube or congestion in throat. Patient given fentylnyl and zofran o/n to help with symptoms and sleeping. Patient has been hypokalemic, most recent results of 3.3L. Patient has an anion gap of 12 per latest labs. Small bowel obstruction seems to be resolved. Patient tolerating clear liquids and may be advanced if NG tube volume minimal on recheck. Patient hypokalemia should be monitored and potassium should be given to decrease chance of obstruction. Plan: Connect ngt to check volume in GI, record output. If less than 300mL will d/c ngt and advance to soft diet. Patient has been hypokalemic (latest 3.3L), administer potassium should be given to decrease chance of further obstruction. Continue to administer lactated ringers. Continue medication for nausea and pain PRN. Monitor sore throat symptoms. Possible discharge if diet advanced, patient having bowel movements, pt afebrile, no abdominal pain, tachycardia, shortness of breath. JASBIR FULLER DO 03/06/21 1322: Subjective Time Seen by a Provider: 11:36 Subjective/Events-last exam Pt seen and examined, states her main complaint is nasal congestion and sore throat. Pt does use O2 at home, "not very often" with hx of sleep apnea but couldn't stand the CPAP machine. Review of Systems General: No Chills, No Night Sweats HEENT: Sinus Congestion, Sore Throat Pulmonary: Dyspnea; No Cough Cardiovascular: No: Chest Pain, Palpitations Gastrointestinal: Nausea; No: Vomiting, Abdominal Pain Objective Exam General Appearance: No Apparent Distress (Patient complaining of sore throat, some trouble breathing due to congestion in throat.), Obese HEENT: Moist Mucous Membranes, Other (NG tube in place. No pain on palpation of maxillary and frontal sinuses. ) Respiratory: Lungs Clear, Normal Breath Sounds, No Accessory Muscle Use, No Respiratory Distress Cardiovascular: Regular Rate, Rhythm, Systolic Murmur (Possible systolic murmer heard on auscultation.) Gastrointestinal: non tender, soft, no organomegaly, other Assessment/Plan Assessment/Plan Assessment/Plan PSBO - resolved, increase to soft diet and D/C NGT (NGT had appx 200ml, looked like tea she was drinking) Hypokalemia - replace Plan probable d/c home per hospitalist, no surgical indications at this time. Supervisory-Addendum Brief Verification & Attestation Participated in pt care: history, MDM, physical Personally performed: exam, history, MDM, supervision of care Care discussed with: Medical Student Procedures: n/a Verification and Attestation of Medical Student E/M Service A medical student performed and documented this service. I then reviewed and verified all information documented by the medical student and made modifications to such information, when appropriate. I personally performed a physical exam, medical decision making and then discussed any differences between the notes and made revisions as necessary to create one note. Jasbir Fuller , 03/06/21 , 13:22 EDGARDO WALDRON Mar 06, 2021 06:56 JASBIR FULLER DO Mar 06, 2021 13:22
[2021-03-06 08:00] VITALS: BP 131/68
[2021-03-06] MEDS: POTASSIUM CL 10MEQ/50ML IVPB 50 ML IV SCH ×4 (09:07→13:32)
[2021-03-06] MEDS: ENOXAPARIN 40 MG/0.4 ML (LOVENOX) SYR SC SCH (09:07)
--- NOTE | 2021-03-06 10:02 | Physical Therapy Daily Note ---
PT Daily Note-Current Subjective Patient agrees to PT. Mental Status Patient Orientation: Normal For Age Attachments: NG Tube (clamped), Oxygen (3L) Transfers SCALE: Activities may be completed with or without assistive devices. 7-Fktzshexic-jexbnpi completes the activity by him/herself with no assistance from a helper. 5-Set-up or Clean-up Assistance-helper sets up or cleans up; patient completes activity. [place] assists only prior to or following the activity. 4-Supervision or Touching Assistance-helper provides verbal cues and/or touching/steadying and/or contact guard assistance as patient completes activity. Assistance may be provided throughout the activity or intermittently. 3-Partial/Moderate Assistance-helper does LESS THAN HALF the effort. [place] lifts, holds or supports trunk or limbs, but provides less than half the effort. 2-Substantial/Maximal Assistance-helper does MORE THAN HALF the effort. [place] lifts or holds trunk or limbs and provides more than half the effort. 1-Lkryzugur-rvboqh does ALL the effort. Patient does none of the effort to complete the activity. Or, the assistance of 2 or more helpers is required for the patient to complete the activity. If activity was not attempted, code reason: 7-Patient Refused. 9-Not Applicable-not attempted and the patient did not perform the activity before the current illness, exacerbation or injury. 10-Not Attempted due to Environmental Limitations-(lack of equipment, weather restraints, etc.). 88-Not Attempted due to Medical Conditions or Safety Concerns. Sit to Stand (QC): 5 Gait Training Does the Patient Walk?: Yes Distance: 225' Walk 10 feet (QC): 5 Walk 50 ft with 2 Turns(QC): 5 Walk 150 ft (QC): 5 Gait Assistive Device: FWW safe and functional with no deviation Treatments O2 removed due to patient does not wear at home. SAO2 RA 91% in chair prior to activity. Patient ambulated 150' with SAO2 decreasing to 85%. O2 3L NC placed with SAO2 improving to 95%. RT notified. Assessment Patient desires to return to home soon to care for spouse. Patient improved with distance with ambulation, however, SAO2 decrease on RA. NG tube remains in place but clamped. Continue to increase activity as tolerated by patient. PT Pocket Builder Goals Pocket Builder Goals PT Skilled Nursing Goals Time Frame: Mar 17, 2021 Roll Left & Right (QC): 6 Sit to Lying (QC): 6 Lying-Sitting on Side/Bed(QC): 6 Sit to Stand (QC): 6 Chair/Mdg-oz-Hfaoe Xfer(QC): 6 Toilet Transfer (QC): 6 Walk 10 feet (QC): 6 Walk 50ft with 2 Turns (QC): 6 Walk 150 ft (QC): 6 PT Plan Treatment/Plan Treatment Plan: Continue Plan of Care Treatment Plan: Bed Mobility, Education, Functional Activity Lizzie, Functional Strength, Gait, Safety, Therapeutic Exercise, Transfers Treatment Duration: Mar 17, 2021 Frequency: 6 times per week Estimated Hrs Per Day: .25 hour per day Patient and/or Family Agrees t: Yes Time/GCodes Time In: 900 Time Out: 924 Total Billed Treatment Time: 24 Total Billed Treatment 1 visit FA x 2 24 min DELIA BRUMFIELD PT Mar 06, 2021 10:02
--- NOTE | 2021-03-06 10:39 | Progress Note - Hospitalist ---
Subjective HPI/CC On Admission Date Seen by Provider: Mar 06, 2021 Time Seen by Provider: 10:37 Rhonda Moody is a 75-year-old female with past medical history of chronic back pain, chronic left shoulder pain, history of left humerus fracture, obesity, recurrent small bowel obstructions, who presented with nausea and vomiting. She had also been having abdominal pain. She said she was not able to hold anything down. She had also been having diarrhea. She says she has had 7 hospitalizations for small bowel obstruction in the past. She had 2 hospitalizations in September. She was told at that time that if she had another that she would require exploratory surgery. She had an NG tube placed in the ER. She has not had any further nausea or vomiting. She is not having any more abdominal pain or bloating. 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 Subjective/Events-last exam Pt reports feeling better today. NGT has been clamped since her SBFT yesterday and she has had multiple BMs. Objective Exam Vital Signs Vital Signs Date Time Temp Pulse Resp B/P (MAP) Pulse Ox O2 Delivery O2 Flow Rate FiO2 03/06/21 08:00 Room Air 03/06/21 08:00 35.5 70 18 131/68 (89) 92 03/05/21 22:35 2.00 03/03/21 05:02 28 Capillary Refill : General Appearance: No Apparent Distress, Obese Respiratory: Lungs Clear, No Respiratory Distress Cardiovascular: Regular Rate, Rhythm, No Murmur Gastrointestinal: Normal Bowel Sounds, Non Tender, Soft Neurologic/Psychiatric: Alert, Oriented x3 Results/Procedures Lab Laboratory Tests 03/06/21 05:50 Patient resulted labs reviewed. Imaging: Reviewed Imaging Report Assessment/Plan Assessment and Plan Assess & Plan/Chief Complaint Small bowel obstruction History of small bowel obstruction Imaging consistent with partial small bowel obstruction NG tube in place but clamped, discussed with Dr Fuller and plan to place to suction and if less than 300ml output can DC NGT DC IV fluids as toelrating clear liquid diet and will likely advance to soft this afternoon Pain regimen Surgery following Obesity Chronic low back pain Chronic left shoulder pain History of humerus fracture Macular degeneration Clinically significant, no acute management needs DVT prophylaxis: TEMO Huizar MD Mar 06, 2021 10:39
[2021-03-06] MEDS ORDERED: CHLORASEPTIC SPRAY 177 ML LIQUID MC PRN (10:45)
--- NOTE | 2021-03-06 12:01 | Occupational Ther Daily Note ---
OT Current Status-Daily Note Subjective Pt sitting in recliner, alert. No c/o pain. Pt agrees to therapy. Mental Status/Objective Patient Orientation: Person, Place, Time, Situation Attachments: IV, NG Tube, Oxygen ADL-Treatment Therapy Code Descriptions/Definitions Functional [place] Measure: 0=Not Assessed/NA 4=Minimal Assistance 1=Total Assistance 5=Supervision or Setup 2=Maximal Assistance 6=Modified [place] 3=Moderate Assistance 7=Complete IndependenceSCALE: Activities may be completed with or without assistive devices. 7-Fkelbmwgjp-vurddra completes the activity by him/herself with no assistance from a helper. 5-Set-up or Clean-up Assistance-helper sets up or cleans up; patient completes activity. [place] assists only prior to or following the activity. 4-Supervision or Touching Assistance-helper provides verbal cues and/or touching/steadying and/or contact guard assistance as patient completes activity. Assistance may be provided throughout the activity or intermittently. 3-Partial/Moderate Assistance-helper does LESS THAN HALF the effort. [place] lifts, holds or supports trunk or limbs, but provides less than half the effort. 2-Substantial/Maximal Assistance-helper does MORE THAN HALF the effort. [place] lifts or holds trunk or limbs and provides more than half the effort. 0-Bbmofqwhb-uoholo does ALL the effort. Patient does none of the effort to complete the activity. Or, the assistance of 2 or more helpers is required for the patient to complete the activity. If activity was not attempted, code reason: 7-Patient Refused. 9-Not Applicable-not attempted and the patient did not perform the activity before the current illness, exacerbation or injury. 10-Not Attempted due to Environmental Limitations-(lack of equipment, weather restraints, etc.). 88-Not Attempted due to Medical Conditions or Safety Concerns. Other Treatment Pt engaged in AE education of LHS and chocolate coater for lower body ADLs. Pt stated having broken L upper humerus in the past and having calcium deposits limiting ROM, making it difficult to complete bathing/showering and LB/UB dressing. Then stated that in the last couple of weeks she heard a pop in her R shldr which has limited her ROM though never went to the doctor for this. Pt verbalized fair return on skilled instructions. Pt declines to physically attempt using AE at this time. Pt informed of where to buy and how much AE is approximately. Pt left with LHS and Polymerization Helper in room to use while here. After session, pt sitting in recliner with call light/phone within reach. All needs met in room. Education OT Patient Education: Modified ADL techniques, Use of adapted equipment Teaching Recipient: Patient Teaching Methods: Discussion Response to Teaching: Verbalize Understanding, Reinforcement Needed OT Mcfp Goals Mcfp Goals Time Frame: Mar 10, 2021 Eating (QC): 6 Oral Hygiene (QC): 6 Toileting Hygiene (QC): 6 Shower/Bathe Self (QC): 4 Upper Body Dressing (QC): 6 Lower Body Dressing (QC): 6 On/Off Footwear (QC): 6 Additional Goals: 1-Demonstrate ADL Tasks, 2-Verbalize Understanding, 3- ImproveStrength/Lizzie 1=Demonstrate adherence to instructed precautions during ADL tasks. 2=Patient will verbalize/demonstrate understanding of assistive devices/modifications for ADL. 3=Patient will improve strength/tolerance for activity to enable patient to perform ADL's. OT Education/Plan Problem List/Assessment Assessment: Impaired Self-Care Skills, Restricted Funct UE ROM Discharge Recommendations Plan/Recommendations: Continue POC Treatment Plan/Plan of Care Patient would benefit from OT for education, treatment and training to promote independence in ADL's, mobility, safety and/or upper extremity function for ADL's. Plan of Care: ADL Retraining, Functional Mobility, UE Funct Exercise/Act Treatment Duration: Mar 10, 2021 Frequency: 5 times per week Estimated Hrs Per Day: .25 hour per day Agreement: Yes Rehab Potential: Good Time/GCodes Start Time: 11:35 Stop Time: 11:50 Total Time Billed (hr/min): 15 Billed Treatment Time 1 Visit- FA (15 min) LIT BANEGAS Mar 06, 2021 12:01
[2021-03-06 15:36] VITALS: BP 131/76
[2021-03-06 23:04] VITALS: BP 126/74
[2021-03-07 06:04] LABS: BASOPHILS % (AUTO) 1 % (0-10); EOSINOPHILS # (AUTO) 0.2 10^3/uL (0.0-0.3); EOSINOPHILS % (AUTO) 5 % (0-10); HEMATOCRIT 33 % (35-52); HEMOGLOBIN 10.6 g/dL (11.5-16.0); LYMPHOCYTES # (AUTO) 1.1 10^3/uL (1.0-4.0); LYMPHOCYTES % (AUTO) 27 % (12-44); MEAN CORPUSCULAR HEMOGLOBIN 30 pg (25-34); MEAN CORPUSCULAR HGB CONC 33 g/dL (32-36); MEAN CORPUSCULAR VOLUME 93 fL (80-99); MEAN PLATELET VOLUME 9.5 fL (9.0-12.2); MONOCYTES # (AUTO) 0.6 10^3/uL (0.0-1.0); MONOCYTES % (AUTO) 14 % (0-12); NEUTROPHILS # (AUTO) 2.2 10^3/uL (1.8-7.8); NEUTROPHILS % (AUTO) 53 % (42-75); PLATELET COUNT 269 10^3/uL (130-400); WHITE BLOOD COUNT 4.2 10^3/uL (4.3-11.0)
[2021-03-07 06:26] LABS: CALCIUM 8.9 MG/DL (8.5-10.1); CREATININE SERUM 0.58 MG/DL (0.60-1.30); POTASSIUM 3.4 MMOL/L (3.6-5.0)
--- NOTE | 2021-03-07 06:49 | Progress Note - Surgery ---
EDGARDO WALDRON 03/07/21 0649: Subjective Date Seen by a Provider: Mar 07, 2021 Time Seen by a Provider: 06:40 Subjective/Events-last exam Patient did well o/n. She was on 3L o/n but while she was in bed, she took off her nasal canula and did not have any issues. Reports 2 bowel movements, no na usea, no pain, no blood in stool. Stool has harder consistency. Patient stated sore throat better since removal of ngt. Patient was able to have mash potatos and gravy but the pepper on the meat irritated her throat. Patient handling liquids well. Patient did not have any pain or nausea medication o/n. Patient is able to ambulate alone. Patient states she is ready to go home and will use her oxygen concentrated when needed. Per nurse, received potassium IV o/n Review of Systems General: No Chills, No Night Sweats, No Fatigue, No Malaise, No Appetite, No Other HEENT: No Head Aches, No Visual Changes, No Eye Pain, No Ear Pain, No Dysphasia, No Sinus Congestion, No Post Nasal Drip; Sore Throat (mild sore throat, seems to be from ngt per patient.); No Other Pulmonary: No Dyspnea, No Cough, No Pleuritic Chest Pain, No Other Cardiovascular: No: Chest Pain, Palpitations, Orthopnea, Paroxysmal Noc. Dyspnea, Edema, Lt Headedness, Other Gastrointestinal: No: Nausea, Vomiting, Abdominal Pain, Diarrhea, Constipation, Melena, Hematochezia, Other Genitourinary: No Dysuria, No Frequency, No Incontinence, No Hematuria, No Retention, No Other Musculoskeletal: No: other, neck pain, shoulder pain, arm pain, back pain, hand pain, leg pain, foot pain Neurological: No: Weakness, Numbness, Incoordination, Change in speech, Confusion, Seizures, Other Objective Exam Vital Signs Date Time Temp Pulse Resp B/P (MAP) Pulse Ox O2 Delivery O2 Flow Rate FiO2 03/07/21 05:46 98 Nasal Cannula 3.00 03/06/21 23:04 36.2 63 16 126/74 (91) 98 Nasal Cannula 3.00 03/06/21 19:41 Nasal Cannula 2.00 03/06/21 15:36 36.7 62 20 131/76 (94) 99 Nasal Cannula 3.00 03/06/21 08:00 Room Air 03/06/21 08:00 35.5 70 18 131/68 (89) 92 Room Air I & O 03/07/21 07:00 Intake Total 1970 ml Balance 1970 ml Capillary Refill : General Appearance: No Apparent Distress (Patient complaining of sore throat, some trouble breathing due to congestion in throat.), Obese HEENT: Moist Mucous Membranes, Other (NG tube in place. No pain on palpation of maxillary and frontal sinuses. ) Neck: Normal Inspection, Non Tender, Other (Tender submandubular area and neck. ) Respiratory: Lungs Clear, Normal Breath Sounds, No Accessory Muscle Use, No Respiratory Distress Cardiovascular: Regular Rate, Rhythm, No Gallop, Systolic Murmur (Possible systolic murmer heard on auscultation.) Peripheral Pulses: 2+ Dorsalis Pedis (R), 2+ Radial Pulses (R), 2+ Radial Pulses (L) Gastrointestinal: normal bowel sounds, non tender, soft, no organomegaly, no pulsatile mass, other Extremity: Non Tender Neurologic/Psychiatric: Alert, Oriented x3 Skin: Normal Color, Warm/Dry Results Lab Laboratory Tests 03/07/21 05:50: White Blood Count 4.2L, Red Blood Count 3.52L, Hemoglobin 10.6L, Hematocrit 33L, Mean Corpuscular Volume 93, Mean Corpuscular Hemoglobin 30, Mean Corpuscular Hemoglobin Concent 33, Red Cell Distribution Width 13.0, Platelet Count 269, Mean Platelet Volume 9.5, Immature Granulocyte % (Auto) 0, Neutrophils (%) (Auto) 53, Lymphocytes (%) (Auto) 27, Monocytes (%) (Auto) 14H, Eosinophils (%) (Auto) 5, Basophils (%) (Auto) 1, Neutrophils # (Auto) 2.2, Lymphocytes # (Auto) 1.1, Monocytes # (Auto) 0.6, Eosinophils # (Auto) 0.2, Basophils # (Auto) 0.0, Immature Granulocyte # (Auto) 0.0, Sodium Level 142, Potassium Level 3.4L, Chloride Level 102, Carbon Dioxide Level 28, Anion Gap 12, Blood Urea Nitrogen 3L, Creatinine 0.58L, Estimat Glomerular Filtration Rate 102, BUN/Creatinine Ratio 5, Glucose Level 114H, Calcium Level 8.9 Impression: Potassium level went up slightly o/n. Patient's Hbg and Hct went down o/n. Hbg is at 10.6L, down from 11.6. Hct is at 33, down from 36. Meds Item Value Date Time Lactated Ringer's 1,000 ml @ 125 mls/hr 03/03/21 0215 Enoxaparin Sodium 40 mg 03/03/21 0900 (Lovenox DAILY/SC 03/06/21 0907 Injection) Potassium Chloride 50 ml @ 50 mls/hr 03/06/21 0915 Fentanyl Citrate 25 mcg 03/03/21 2145 (Sublimaze Q1H PRN/IVP 03/05/21 2327 Injection) Ketorolac 15 mg 03/03/21 1400 Tromethamine Q6H PRN/IVP 03/03/21 1437 (Toradol Injection) Ondansetron HCl 4 mg 03/03/21 0215 (Zofran Q6H PRN/IV 03/05/21 1954 Injection (Sdv)) Phenol SPRAY TO THROAT 03/06/21 1045 (Chloraseptic Q2H PRN/[facility]) Radiology No new data Procedures NG tube was taken out yesterday, patient doing well, throat irritation and soreness decreased o/n. Assessment/Plan Assessment/Plan Assessment/Plan PSBO - resolved, Impression: patient doing well, no abd pain, patient having more bowel movements and consistency increased, sore throat minimal, potassium went up on IV potassium, Hct/Hbg trended down o/n but patient denied any blood in stool unknown cause at this time. No discomfort or pain, afebrile, not tachycardic, normotensive. Plan probable d/c home per hospitalist, no surgical indications at this time. Discuss any need for home oxygen with patient. JASBIR FULLER DO 03/07/21 1644: Subjective Time Seen by a Provider: 15:51 Subjective/Events-last exam Pt seen and examined, tolerating diet and pain controlled. Still having flatus, but only small BMs. No nausea or vomiting Review of Systems General: No Chills, No Night Sweats; Fatigue HEENT: Sore Throat (mild sore throat, seems to be from ngt per patient.) Pulmonary: No Dyspnea, No Cough Cardiovascular: No: Chest Pain, Palpitations Gastrointestinal: No: Nausea, Vomiting, Abdominal Pain Objective Exam General Appearance: No Apparent Distress (Patient complaining of sore throat, some trouble breathing due to congestion in throat.), Obese HEENT: Moist Mucous Membranes Respiratory: Lungs Clear, Normal Breath Sounds, No Accessory Muscle Use, No Respiratory Distress Cardiovascular: Regular Rate, Rhythm, Systolic Murmur (Possible systolic murmer heard on auscultation.) Gastrointestinal: non tender, soft, no organomegaly, no pulsatile mass Neurologic/Psychiatric: Alert, Oriented x3 Assessment/Plan Assessment/Plan Assessment/Plan PSBO - resolved, Impression: patient doing well, no abd pain, patient having more bowel movements and consistency increased, sore throat minimal, potassium went up on IV potassium, Hct/Hbg trended down o/n but patient denied any blood in stool unknown cause at this time. No discomfort or pain, afebrile, not tachycardic, normotensive. Plan d/c home Supervisory-Addendum Brief Verification & Attestation Participated in pt care: history, MDM, physical Personally performed: exam, history, MDM, supervision of care Care discussed with: Medical Student Procedures: n/a Verification and Attestation of Medical Student E/M Service A medical student performed and documented this service. I then reviewed and verified all information documented by the medical student and made modifications to such information, when appropriate. I personally performed a physical exam, medical decision making and then discussed any differences between the notes and made revisions as necessary to create one note. Jasbir Fuller , 03/07/21 , 16:44 EDGARDO WALDRON Mar 07, 2021 06:49 JASBIR FULLER DO Mar 07, 2021 16:44
[2021-03-07 07:35] VITALS: BP 114/52
[2021-03-07] MEDS: ENOXAPARIN 40 MG/0.4 ML (LOVENOX) SYR SC SCH (08:57)
--- NOTE | 2021-03-07 09:00 | Physical Therapy Daily Note ---
PT Daily Note-Current Subjective Patient in recliner pre tx, agrees to PT after some encouragement, she states she will ambulate, voices no complaints of pain. Appearance Patient in recliner post tx with nurse call, phone, tray, all needs met. Mental Status Patient Orientation: Person, Place, Situation Attachments: Oxygen Transfers SCALE: Activities may be completed with or without assistive devices. 4-Exthjjmnsm-yrntsdo completes the activity by him/herself with no assistance from a helper. 5-Set-up or Clean-up Assistance-helper sets up or cleans up; patient completes activity. [place] assists only prior to or following the activity. 4-Supervision or Touching Assistance-helper provides verbal cues and/or touching/steadying and/or contact guard assistance as patient completes activity. Assistance may be provided throughout the activity or intermittently. 3-Partial/Moderate Assistance-helper does LESS THAN HALF the effort. [place] lifts, holds or supports trunk or limbs, but provides less than half the effort. 2-Substantial/Maximal Assistance-helper does MORE THAN HALF the effort. [place] lifts or holds trunk or limbs and provides more than half the effort. 1-Eaugslnlh-hqgnee does ALL the effort. Patient does none of the effort to com plete the activity. Or, the assistance of 2 or more helpers is required for the patient to complete the activity. If activity was not attempted, code reason: 7-Patient Refused. 9-Not Applicable-not attempted and the patient did not perform the activity before the current illness, exacerbation or injury. 10-Not Attempted due to Environmental Limitations-(lack of equipment, weather restraints, etc.). 88-Not Attempted due to Medical Conditions or Safety Concerns. Sit to Stand (QC): 4 Chair/Ttw-xb-Qxqcl Xfer(QC): 4 SBA Gait Training Distance: 200' Walk 10 feet (QC): 4 Walk 50 ft with 2 Turns(QC): 4 Walk 150 ft (QC): 4 Gait Assistive Device: FWW SBA, slow but steady ambulation Treatments transfers, ambulation Assessment Current Status: Poor Progress poor motivation, O2 remained above 90% with ambulation PT [place] Floor Goals [place] Floor Goals PT Snf Goals Time Frame: Mar 17, 2021 Roll Left & Right (QC): 6 Sit to Lying (QC): 6 Lying-Sitting on Side/Bed(QC): 6 Sit to Stand (QC): 6 Chair/Stx-rg-Pgccj Xfer(QC): 6 Toilet Transfer (QC): 6 Walk 10 feet (QC): 6 Walk 50ft with 2 Turns (QC): 6 Walk 150 ft (QC): 6 PT Plan Problem List Problem List: Activity Tolerance, Functional Strength, Safety, Balance, Gait, Transfer, Bed Mobility, ROM Treatment/Plan Treatment Plan: Continue Plan of Care Treatment Plan: Bed Mobility, Education, Functional Activity Lizzie, Functional Strength, Gait, Safety, Therapeutic Exercise, Transfers Treatment Duration: Mar 17, 2021 Frequency: 6 times per week Estimated Hrs Per Day: .25 hour per day Patient and/or Family Agrees t: Yes Safety Risks/Education Patient Education: Gait Training, Transfer Techniques, Correct Positioning, Safety Issues Teaching Recipient: Patient Teaching Methods: Demonstration, Discussion Response to Teaching: Reinforcement Needed Time/GCodes Time In: 08 Time Out: 0838 Total Billed Treatment Time: 12 Total Billed Treatment 1 visit GT 12' SUMA ONTIVEROS PT Mar 07, 2021 09:00
--- NOTE | 2021-03-07 10:54 | Discharge Inst-Simple/Standard ---
Discharge Inst-Standard Patient Instructions/Follow Up Plan of Care/Instructions/FU: Please continue to take your medicatiosn as written. Please follow up with your primary care doctor in the next week to follow up this hospital stay. Follow up with Dr Fuller as scheduled. Activity as Tolerated: Yes Discharge Diet: No Restrictions Return to The Hospital For: Abdominal pain, bloating, decreased gas or bowel movements, if you feel you are getting worse. TEMO MILLER MD Mar 07, 2021 10:54
[2021-03-07 13:47] VITALS: BP 114/52
--- NOTE | 2021-03-07 13:49 | Occupational Ther Daily Note ---
OT Current Status-Daily Note Subjective Pt sitting in recliner, alert. No c/o pain. Pt agrees to therapy. Mental Status/Objective Patient Orientation: Person, Place, Time, Situation Attachments: IV, Oxygen ADL-Treatment Therapy Code Descriptions/Definitions Functional [place] Measure: 0=Not Assessed/NA 4=Minimal Assistance 1=Total Assistance 5=Supervision or Setup 2=Maximal Assistance 6=Modified [place] 3=Moderate Assistance 7=Complete IndependenceSCALE: Activities may be completed with or without assistive devices. 8-Iarvqclpft-nnwbyqk completes the activity by him/herself with no assistance from a helper. 5-Set-up or Clean-up Assistance-helper sets up or cleans up; patient completes activity. [place] assists only prior to or following the activity. 4-Supervision or Touching Assistance-helper provides verbal cues and/or touching/steadying and/or contact guard assistance as patient completes activity. Assistance may be provided throughout the activity or intermittently. 3-Partial/Moderate Assistance-helper does LESS THAN HALF the effort. [place] lifts, holds or supports trunk or limbs, but provides less than half the effort. 2-Substantial/Maximal Assistance-helper does MORE THAN HALF the effort. [place] lifts or holds trunk or limbs and provides more than half the effort. 1-Zjngfycfk-upgzns does ALL the effort. Patient does none of the effort to complete the activity. Or, the assistance of 2 or more helpers is required for the patient to complete the activity. If activity was not attempted, code reason: 7-Patient Refused. 9-Not Applicable-not attempted and the patient did not perform the activity before the current illness, exacerbation or injury. 10-Not Attempted due to Environmental Limitations-(lack of equipment, weather restraints, etc.). 88-Not Attempted due to Medical Conditions or Safety Concerns. Other Treatment Pt requested information on types of AE and prices around pt's home area. Pt stated having a w/c that was to big and was being used as a transfer bench.Skilled instruction and education given on proper use of transfer benches and proper use of w/c. Pt demonstrated good return on instructions. Pt inquired where to find a transfer bench in the [place] area and will be having family member picker feeder/order after discharge. After session, pt sitting in r ecliner with call light/phone within reach. All needs met in room. Education OT Patient Education: Safety issues, Transfer techniques, Use of adapted equipment Teaching Recipient: Patient Teaching Methods: Demonstration, Discussion Response to Teaching: Verbalize Understanding, Return Demonstration OT Migratory Game Bird Biologist Goals Migratory Game Bird Biologist Goals Time Frame: Mar 10, 2021 Eating (QC): 6 Oral Hygiene (QC): 6 Toileting Hygiene (QC): 6 Shower/Bathe Self (QC): 4 Upper Body Dressing (QC): 6 Lower Body Dressing (QC): 6 On/Off Footwear (QC): 6 Additional Goals: 1-Demonstrate ADL Tasks, 2-Verbalize Understanding, 3- ImproveStrength/Lizzie 1=Demonstrate adherence to instructed precautions during ADL tasks. 2=Patient will verbalize/demonstrate understanding of assistive devices/modifications for ADL. 3=Patient will improve strength/tolerance for activity to enable patient to perform ADL's. OT Education/Plan Problem List/Assessment Assessment: Decreased Safety Aware Discharge Recommendations Plan/Recommendations: Discharge/Goals Met ([facility] 03/07/2021) Treatment Plan/Plan of Care Patient would benefit from OT for education, treatment and training to promote independence in ADL's, mobility, safety and/or upper extremity function for ADL's. Plan of Care: ADL Retraining, Functional Mobility, UE Funct Exercise/Act Treatment Duration: Mar 10, 2021 Frequency: 5 times per week Estimated Hrs Per Day: .25 hour per day Agreement: Yes Rehab Potential: Good Time/GCodes Start Time: 13:20 Stop Time: 13:40 Total Time Billed (hr/min): 20 Billed Treatment Time 1 Visit- FA (20 min) LIT BANEGAS Mar 07, 2021 13:49
[2021-03-07 16:00] VITALS: BP 148/76
== END 2021-03-07 17:30 | disposition home or self-care (01) | DRG 390 ==
LOC: 4TH 03-03 01:45
PROVIDERS: ADMIT Internal Medicine; ATTEND Internal Medicine
DX: K56.600 Partial intestinal obstruction, unspecified as to cause (principal); M25.512 Pain in left shoulder; G89.29 Other chronic pain; E66.9 Obesity, unspecified; H35.30 Unspecified macular degeneration; M54.50 Low back pain, unspecified; M19.90 Unspecified osteoarthritis, unspecified site; H26.9 Unspecified cataract; E87.6 Hypokalemia; G47.30 Sleep apnea, unspecified; Z85.3 Personal history of malignant neoplasm of breast; Z88.0 Allergy status to penicillin; Z88.5 Allergy status to narcotic agent; Z88.8 Allergy status to other drugs, medicaments and biological substances; Z86.010 Personal history of colon polyps; Z68.38 Body mass index [BMI] 38.0-38.9, adult
CPT/HCPCS: 36415; 74250; 80048; 82947; 83735; 85025; 94760